=== PATIENT | female | born 1995 | race Caucasian/White ===

== ENCOUNTER 2020-03-12 11:44 | Emergency (ER) | payer BC ==
--- NOTE | 2020-03-12 12:35 | ER Document Report ---
ED GI/ - General Chief Complaint: Vag Bleeding, +preg <12wks Stated Complaint: VAGINAL BLEEDING Time Seen by Provider: 03/12/20 12:04 Primary Care Provider: LEANN STONE FNP-C [Primary Care Provider] - Follow up as needed Notes: HPI: 24-year-old female who presents today around 6-1/2 weeks by dates with some vaginal spotting 2 days ago followed by a small clot today with some vaginal bleeding. No pelvic pain or flank pain. No nausea, vomiting, diarrhea. No pain with urination. This is the patient's first . She has not had an ultrasound as of yet. She denies lightheadedness or dizziness. ROS: See HPI All other review of systems reviewed and otherwise negative Reviewed vital signs and nursing note as charted by RN. PHYSICAL EXAM: CONSTITUTIONAL: Alert and oriented and responds appropriately to questions. Well-appearing; well-nourished HEAD: Normocephalic; atraumatic EYES: Sclera is not pale CARD: Regular rate and rhythm; no murmurs; symmetric distal pulses RESP: Normal chest excursion without splinting or tachypnea; breath sounds clear and equal bilaterally; no wheezes, no rhonchi, no rales ABD/GI: Normal bowel sounds; non-distended; soft, non-tender : Pelvic exam is pending BACK: The back appears normal and is non-tender to palpation EXT: Normal ROM in all joints; non-tender to palpation; no edema SKIN: No acute lesions noted NEURO: CN 2-12 intact; 5/5 bilateral upper and lower extremity strength with sensation intact to light touch PSYCH: The patient's mood and manner are appropriate. Grooming and personal hygiene are appropriate. - Related Data Allergies/Adverse Reactions: No Known Allergies Allergy (Unverified 03/12/20 12:08) Home Medications: prenatals, vit d Past Medical History - General Last Menstrual Period: 01/25/20 - Social History Smoking Status: Never Smoker Chew tobacco use (# tins/day): No Frequency of alcohol use: None Drug Abuse: None Family History: Reviewed & Not Pertinent Patient has homicidal ideation: No Renal/ Medical History: Reports: Hx Kidney Stones Past Surgical History: Reports: Hx Kidney (Renal Surgery) Physical Exam - Vital signs Vitals: Temp Pulse Resp BP Pulse Ox 98.6 F 100 16 147/95 H 98 06/14/20 11:49 03/12/20 11:49 03/12/20 11:49 03/12/20 11:49 03/12/20 11:49 Course - Re-evaluation Re-evalutation: 03/12/20 12:34 Given the history and physical, we will obtain basic labs, quantitative hCG, transvaginal ultrasound, and a pelvic exam. Patient has no abdominal pain. I do believe torsion or ectopic to be unlikely at this moment. We would like to further assess the possibility of a miscarriage or IUP. 03/12/20 12:50 Pelvic examination shows no obvious external lesions. Blood in the vaginal vault. No active hemorrhage. No blood clots in the cervix. No cervical motion tenderness. Cervical dilation of 1 fingertip. 03/12/20 13:00 Hemoglobin as recorded. Quantitative hCG pending. 03/12/20 13:29 Quantitative hCG as recorded. Vital signs are stable. Patient is Rh plus. Pelvic examination has been performed and awaiting results. - Vital Signs Vital signs: Temp Pulse Resp BP Pulse Ox 98.6 F 100 16 147/95 H 98 03/12/20 11:58 03/12/20 11:49 03/12/20 11:49 03/12/20 11:49 03/12/20 11:49 - Laboratory Result Diagrams: 03/12/20 12:21 Laboratory results interpreted by me: 03/12/20 03/12/20 12:21 12:52 Beta HCG, Quant 49.92 H Urine Blood SMALL H Discharge - Discharge Clinical Impression: Miscarriage, threatened, early Condition: Good Disposition: HOME, SELF-CARE Additional Instructions: Come back immediately for any excessive increased bleeding, lightheadedness or dizziness, pain or fever, persistent vomiting, or any other acute problems. Please either follow-up with your [employer], your primary care physician, or return here in around 3 days for repeat quantitative hCG testing and possibly repeat ultrasound. Referrals: LEANN STONE FNP-C [Primary Care Provider] - Follow up as needed
[2020-03-12 12:39] LABS: ABSOLUTE BASOPHILS # (AUTO) 0.1 10^3/uL (0.0-0.2); ABSOLUTE LYMPHOCYTES (AUTO) 1.8 10^3/uL (0.5-4.7); ABSOLUTE MONOCYTES (AUTO) 0.5 10^3/uL (0.1-1.4); ABSOLUTE NEUT (AUTO) 6.9 10^3/uL (1.7-8.2); BASOPHILS % (AUTO) 1.2 % (0-2); EOSINOPHILS % (AUTO) 0.2 % (0-6); HEMATOCRIT 42.7 % (36.0-47.0); HEMOGLOBIN 14.6 g/dL (12.0-15.5); LYMPHOCYTES % (AUTO) 19.1 % (13-45); MEAN CORPUSCULAR HEMOGLOBIN 29.7 pg (27.0-33.4); MEAN CORPUSCULAR HGB CONC 34.2 g/dL (32.0-36.0); MEAN CORPUSCULAR VOLUME 87 fl (80-97); MONOCYTES % (AUTO) 5.4 % (3-13); PLATELET COUNT 170 10^3/uL (150-450); RED BLOOD COUNT 4.92 10^6/uL (3.72-5.28); SEGMENTED NEUTROPHILS % (AUTO) 74.1 % (42-78); TOTAL CELLS COUNTED % (AUTO) 100 %; WHITE BLOOD COUNT 9.3 10^3/uL (4.0-10.5)
[2020-03-12 13:07] LABS: BACTERIA (WET MOUNT) 4+ BACTERIA SEEN; EPITHELIALS (WET MOUNT) 3+ EPITHELIALS SEEN; RBCS (WET MOUNT) 3+ RBCS SEEN; T.VAGINALIS (WET MOUNT) NO TRICHOMONAS SEEN; WBCS (WET MOUNT) 1+ WBCS SEEN; YEAST (WET MOUNT) NO YEAST SEEN
[2020-03-12 13:09] LABS: APPEARANCE,URINE CLEAR; BILIRUBIN,URINE NEGATIVE (NEGATIVE); COLOR,URINE YELLOW; GLUCOSE, URINE NEGATIVE (NEGATIVE); KETONES,URINE NEGATIVE (NEGATIVE); LEUKOCYTE ESTERASE,URINE NEGATIVE (NEGATIVE); NITRITE,URINE NEGATIVE (NEGATIVE); PROTEIN,URINE NEGATIVE (NEGATIVE); UROBILINOGEN,URINE NEGATIVE mg/dL (<2.0)
--- NOTE | 2020-03-12 13:52 | RADIOLOGY REPORT (SQ) ---
EXAM DESCRIPTION: U/S OB TRANSVAGINAL W/O DOP IMAGES COMPLETED DATE/TIME: 03/12/2020 1:29 pm REASON FOR STUDY: 12; preg w vag bleeidng COMPARISON: None. TECHNIQUE: Transvaginal static and realtime grayscale images acquired of the pelvis. Additional tae cted spectral and color Doppler images recorded. All images stored on PACs. CLINICAL AGE: 6 weeks 5 days [facility] LIMITATIONS: None. FINDINGS: UTERUS: Uncertain findings with a 7 x 5 mm oval-shaped fluid structure overlying the upper cervical canal, unclear if this could reflect a nabothian cyst versus possible gestational sac. . RIGHT ADNEXA: Normal ovary with normal vascular flow. No adnexal free fluid. No adnexal masses. LEFT ADNEXA: Ovary not identified due to poor acoustical window. No adnexal free fluid. No adnexal masses. FREE FLUID: None. OTHER: No other significant finding. IMPRESSION: Uncertain findings with a 7 x 5 mm oval-shaped fluid structure overlying the upper cervi urban canal, unclear if this could reflect a nabothian cyst versus possible gestational sac. FOLLOW-UP ULTRASOUND AND SERIAL [facility] LEVELS STRONGLY RECOMMENDED TO ACCURATELY ASSESS STATU S. TECHNICAL DOCUMENTATION: JOB ID: [id number] [id number] [employer]- All Rights Reserved Reading location - IP/workstation name: [email or web address]
[2020-03-12 14:03] VITALS: BP 126/77
[2020-03-12 14:33] LABS: CHLAM PCR NOT DETECTED (NOT DETECT)
== END 2020-03-12 14:01 | disposition home or self-care (01) ==
LOC: ER 11:44
DX: O20.0 Threatened abortion (principal); Z3A.00 Weeks of gestation of pregnancy not specified; Z79.899 Other long term (current) drug therapy
CPT/HCPCS: 36415; 76817; 81001; 81025; 84702; 85025; 86900; 86901; 87210; 87491; 87591; 99284

== ENCOUNTER → 2020-04-06 | Outpatient (CLI) | payer BC | LOC: OD 07:06 | PROVIDERS: ATTEND Advanced Practice Midwife | DX: O03.9 Complete or unspecified spontaneous abortion without complication (principal) | CPT/HCPCS: 36415; 84702 ==